=== PATIENT | female | born 1990 | race Two or more races ===

== ENCOUNTER 2024-04-06 20:29 | Emergency (ER) | payer MEDICAID, OTHER ==
[~2024-04-06] VITALS: Ht 162.6 cm; Wt 47.7 kg
[2024-04-06 21:01] VITALS: BP 148/93; PULSE 115; RESP 19; TEMP 97.8; O2SAT 98
[2024-04-06] MEDS: DexAMETHasone SOD PHOS 10MG/1ML VIAL INJ IM ONE (21:34)
[2024-04-06] MEDS: KETOROLAC TROMETH 60MG/2ML VIAL IM ONE (21:34)
[2024-04-06] MEDS ORDERED: METH-1181 PO (22:06)
[2024-04-06] MEDS ORDERED: IBUP-1456 PO (22:07)
== END 2024-04-06 22:16 | disposition home or self-care (01) ==
LOC: ER 20:29
DX: S13.4XXA Sprain of ligaments of cervical spine, initial encounter (principal); V89.2XXA Person injured in unspecified motor-vehicle accident, traffic, initial encounter; Y93.89 Activity, other specified; Y92.89 Other specified places as the place of occurrence of the external cause; Y99.8 Other external cause status
CPT/HCPCS: 72040; 96372; 99284; J1100; J1885